=== PATIENT | male | born 1975 | race Caucasian/White ===

== ENCOUNTER 2023-01-06 06:13 | Emergency (ER) | payer BC, SELFPAY ==
[2023-01-06] VITALS (17 sets, daily range): BP systolic 114–156; BP diastolic 69–92; PULSE 57–72; RESP 13–25; TEMP 36.6; O2SAT 95–100; BMI 25.0
--- NOTE | 2023-01-06 06:25 | ECG_ITS ---
[facility] Test Date: 2023-01-06 Pat Name: Fahad Schneider Department: Room: Gender: Male Personal Financial Advisor: : 1975 Requested By: Taiwo Mortensen Order Number: [id number] Karen MD: Sen Rodriguez M.D. Measurements Intervals Mobile Rate: 65 P: -4 NE: 135 QRS: 30 QRSD: 97 T: 64 QT: 408 QTc: 426 Interpretive Statements SINUS RHYTHM WITH SINUS ARRHYTHMIA No previous ECG available for comparison Electronically Signed On 01-06-2023 15:55:26 CDT by Sen Rodriguez M.D. [id number]
--- NOTE | 2023-01-06 06:25 | XR_ITS ---
WS: [id number] EXAMINATION: XR chest 1V portable [id number] REASON FOR EXAM: chest pain COMPARISON: 02/14/2018 ORDER DATE: 01/06/2023 6:42 AM TECHNIQUE: A single, portable frontal chest x-ray was obtained. X-RAY FINDINGS: The lungs are clear. Mild lingular scarring. Pleural spaces are clear. No pleural effusions or pneumo thorax. Cardiomediastinal silhouette is normal. No evidence for pulmonary edema. Soft tissue and osseous structures are unremarkable. No tubes or lines are present. IMPRESSION: Unremarkable frontal portable chest x-ray.
--- NOTE | 2023-01-06 06:26 | W.ED.CHESTPA ---
HPI - Chest Pain General: Chief Complaint: Chest Pain Stated Complaint: chest pain, back pain Time Seen by Provider: 01/06/23 06:25 Source: patient Mode of arrival: ambulatory History of Present Illness: 47-year-old male presents emergency room with complaint of chest pain that woke him up from sleep morning about an hour and a half prior to arrival. He has no known cardiac history does have a history of hypertension several years ago he states he had a stress test that was negative. He has not been having any other episodes of this recently. He gets sharp spasm-like chest pain that last for a few seconds comes and goes radiates into his back. He feels short of breath because painful to take a deep breath and at times with the episodes he will get diaphoretic feeling. No nausea or vomiting. No known history of coronary artery disease. Patient is not diabetic does not smoke he is on antihypertensives and and a statin. He is also on a PPI. MD complaint: chest pain Onset (ago): hour(s) (1.5) Timing of current episode: episodic Onset: during rest Pain location: substernal and left chest Pain radiation: back Severity: moderate Quality: sharp and shooting Relieving factors: nothing Exacerbating factors: nothing Associated symptoms: Reports diaphoresis and dyspnea; Deny abdominal pain, fever(s), nausea, palpitations or vomiting Treatment prior to arrival: none Review of Systems Const: Reports: diaphoresis; Denies: fever(s), chills, fatigue or malaise ENMT: Denies: throat pain, ear or mastoid pain, nasal discharge or nasal congestion Card: Reports: chest pain; Denies: palpitations, irregular heart rhythm, edema, dyspnea on exertion or orthopnea Resp: Reports: dyspnea GI: Denies: abdominal pain, nausea, vomiting, hematemesis, coffee ground emesis, diarrhea, constipation, bloating, hematochezia or melena : Denies: flank pain, dysuria, urinary frequency or urinary urgency Skin/Breast: Denies: rash or pruritus [facility] PFSH: Medical History (Updated 01/06/23 @ 09:05 by Taiwo Chinchilla DO) Anxiety Essential hypertension Hyperlipidemia Obesity SOB (shortness of breath) on exertion Surgical History S/P cholecystectomy Family History Family/Other CAD (coronary artery disease) Other Diabetes Myocardial infarct, old Stroke Social History Smoking and tobacco status: former smoker Alcohol intake: current Alcohol intake frequency: holidays/special occasions only Substance/Drug Use: never Household members: spouse Marital status: Current occupational status: employed Current occupation: SELF- TRANSPORTATION Current gender identity: Male Physical Exam Const: GENERAL APPEARANCE: cooperative and comfortable ORIENTATION/CONSCIOUSNESS: Yes awake, Yes oriented to person, Yes oriented to place and Yes oriented to time HENMT: COMMON NORMALS: normocephalic, atraumatic and hearing grossly normal bilaterally HEAD & SCALP: normocephalic and atraumatic Resp: COMMON NORMALS: normal respiratory effort, No retractions, No use of accessory muscles and clear to auscultation bilaterally AUSCULTATION: clear to auscultation bilaterally Cardio: COMMON NORMALS: regular rate, regular rhythm and No murmurs present (Cardio) RATE: regular rate RHYTHM: regular rhythm GI: COMMON NORMALS: Soft to palpation and No hepatosplenomegaly present AUSCULTATION: Yes normoactive bowel sounds PALPATION: Yes Soft to palpation, No Tenderness to palpation present (GI), No Guarding due to palpation present (GI) and Yes No hepatosplenomegaly present Extremity: COMMON NORMALS: normal to inspection, capillary refill normal, no clubbing, cyanosis or edema, no calf tenderness and no pedal edema Neuro: SENSORIUM/ORIENTATION: Yes oriented to person, Yes oriented to place and Yes oriented to time Skin: COMMON NORMALS: no rashes or lesions noted GENERAL SKIN EXAM: no rashes or lesions noted Course Vital Signs: Vital signs: Vital Signs Temperature 97.9 F 01/06/23 06:19 Pulse Rate 72 01/06/23 09:23 Respiratory Rate 15 01/06/23 09:23 Blood Pressure 114/69 01/06/23 09:23 Pulse Oximetry 99 01/06/23 09:23 Oxygen Delivery Me thod Room Air 01/06/23 06:19 MDM - Chest Pain Medical Decision Making EKG shows no acute changes. No ST segment elevation. Cardiac enzymes negative Labs otherwise unremarkable. Suspect this is more of his GI symptoms not having a discomfort and I will add Carafate add baby aspirin today for an outpatient graded exercise stress test return if has further problems. Medical Records I reviewed the patient's medical records. Lab Data I reviewed the patient's lab results. 01/06/23 06:28 01/06/23 06:28 Laboratory Results WBC 6.54 10^3/uL (3.29-11.43) 01/06/23 06: RBC 5.33 10^6/uL (3.85-5.65) 01/06/23 06:28 Hgb 15.10 g/dL (11.27-16.99) 01/06/23 06:28 Hct 45.1 % (37-53) 01/06/23 06: MCV 84.6 fl (82-101) 01/06/23 06: MCH 28.3 pg (27-33) 01/06/23 06: MCHC 33.5 g/dL (30-55) 01/06/23 06: RDW 14.5 % (12.1-15.1) 01/06/23 06:28 Plt Count 306 10^3/cmm (157-399) 01/06/23 06:28 MPV 9.9 fL (7.4-10.4) 01/06/23 06:28 Neut % (Auto) 52.5 % 01/06/23 06: Lymph % (Auto) 32.4 % 01/06/23 06:28 [place] % (Auto) 11.3 % 01/06/23 06:28 Eos % (Auto) 2.9 % 01/06/23 06: Baso % (Auto) 0.6 % 01/06/23 06:28 Neut # (Auto) 3.43 10^3/uL (1.8-7.7) 01/06/23 06:28 Lymph # (Auto) 2.1 10^3/uL (0.8-4.8) 01/06/23 06:28 [place] # (Auto) 0.7 10^3/uL (0.2-0.9) 01/06/23 06:28 Eos # (Auto) 0.2 10^3/uL (0.0-0.8) 01/06/23 06:28 Baso # (Auto) 0.0 10^3/uL (0.0-0.1) 01/06/23 06:28 Nucleated RBC % (auto) 0 % 01/06/23 06:28 Nucleated RBCs # 0.0 /100WBC 01/06/23 06:28 Sodium 141 mmol/L (136-145) 01/06/23 06:28 Potassium 3.9 mmol/L (3.5-5.1) 01/06/23 06:28 Chloride 106 mmol/L (98-107) 01/06/23 06:28 Carbon Dioxide 24 mmol/L (22-29) 01/06/23 06:28 Anion Gap 14.9 (5-19) 01/06/23 06:28 BUN 17 mg/dL (6-20) 01/06/23 06:28 Creatinine 0.8 mg/dL (0.7-1.2) 01/06/23 06:28 GFR Calculation 103.6 mL/min (90-130) 01/06/23 06:28 Glucose 89 mg/dL (65-115) 01/06/23 06:28 Calculated Osmolality 293 mOsm/kg (285-295) 01/06/23 06:28 Calcium 9.4 mg/dL (8.5-10.5) 01/06/23 06:28 Total Bilirubin 0.8 mg/dL (0.15-1.2) 01/06/23 06:28 AST 21 U/L (0-40) 01/06/23 06:28 ALT 24 U/L (0-41) 01/06/23 06:28 Alkaline Phosphatase 70 U/L (40-130) 01/06/23 06:28 Troponin T Baseline 7 ng/L (0-15) 01/06/23 06:28 Troponin T 120 Minute 6.31 ng/L (0-15) 01/06/23 08:20 Delta Troponin T -0.69 ABS# (0-10) L 01/06/23 08:20 Total Protein 6.9 g/dL (6.6-8.7) 01/06/23 06:28 Albumin 4.4 g/dL (3.5-5.2) 01/06/23 06:28 Globulin 2.5 g/dL (1.3-4.6) 01/06/23 06:28 All radiology interpretation(s) finalized by discharge Discharge Plan Discharge Patient Disposition: Home Clinical Impression: Atypical chest pain Condition: Stable Prescriptions: New aspirin 81 mg tablet,delayed release (DR/EC) 81 mg PO DAILY Qty: 30 0RF Carafate 1 gram tablet 1 g PO Q6H 56 Days Qty: 224 0RF No Action omeprazole 40 mg capsule,delayed release(DR/EC) 40 mg PO BID alprazolam 1 mg tablet extended release 24 hr 1 mg PO BID PRN (Reason: Anxiety) atorvastatin 40 mg tablet 40 mg PO QAM Micardis 80 mg tablet 80 mg PO QAM Discharge Orders: Discharge ED (Routine); Ordered 01/06/23 Ordered By: Taiwo Chinchilla Referrals: Pau Robles, [Primary Care Provider] - Discharge Diet: As Directed Discharge Activity: Increase activity as tolerated Patient Instructions: Diet for Stomach Ulcers and Gastritis (ED), Opioid Safety, Pain Management Activity Restrictions/Additional Instructions: Case management make arrangements for follow-up with an outpatient cardiac stress test. Recommend he start baby aspirin daily as well as Carafate 1 tablet 4 times daily for the next 4 weeks follow-up with your primary care doctor. Coding Level of Care Code ED Educational Technology Specialist for April Silva
[2023-01-06] MEDS: aspirin 81 mg Chew Tablet 324 MG PO (06:33)
[2023-01-06 06:39] LABS: Basophils % 0.6 %; Eosinophils # 0.2 10^3/uL (0.0-0.8); Eosinophils % 2.9 %; Hematocrit 45.1 % (37-53); Lymphocytes # 2.1 10^3/uL (0.8-4.8); Lymphocytes % 32.4 %; Mean Corpuscular HGB Conc 33.5 g/dL (30-55); Mean Corpuscular Hemoglobin 28.3 pg (27-33); Mean Corpuscular Volume 84.6 fl (82-101); Mean Platelet Volume 9.9 fL (7.4-10.4); Monocytes # 0.7 10^3/uL (0.2-0.9); Monocytes % 11.3 %; Neutrophils # 3.43 10^3/uL (1.8-7.7); Neutrophils % 52.5 %; Nucleated Red Blood Cells % 0 %; Platelet Count 306 10^3/cmm (157-399); Red Blood Count 5.33 10^6/uL (3.85-5.65); Red Cell Distribution Width 14.5 % (12.1-15.1); White Blood Count 6.54 10^3/uL (3.29-11.43)
[2023-01-06 06:57] LABS: Alanine Aminotransferase 24 U/L (0-41); Albumin Level 4.4 g/dL (3.5-5.2); Alkaline Phosphatase 70 U/L (40-130); Anion Gap 14.9 (5-19); Aspartate Amino Transferase 21 U/L (0-40); Blood Urea Nitrogen 17 mg/dL (6-20); Calcium 9.4 mg/dL (8.5-10.5); Carbon Dioxide 24 mmol/L (22-29); Chloride 106 mmol/L (98-107); Globulin 2.5 g/dL (1.3-4.6); Glomerular Filtration Rate 103.6 mL/min (90-130); Glucose 89 mg/dL (65-115); Osmolality Calculated 293 mOsm/kg (285-295); Potassium 3.9 mmol/L (3.5-5.1); Sodium 141 mmol/L (136-145); Total Bilirubin 0.8 mg/dL (0.15-1.2); Total Protein 6.9 g/dL (6.6-8.7); Troponin(5th) Baseline 7 ng/L (0-15)
[2023-01-06 09:06] LABS: Troponin 5 2HR 6.31 ng/L (0-15); Troponin 5 2HR Delta -0.69 ABS# (0-10)
== END 2023-01-06 09:25 | disposition home or self-care (01) ==
PROVIDERS: Emergency Provider Family Medicine; PCP Family Medicine
DX: R07.89 Other chest pain (principal); I10 Essential (primary) hypertension; E78.5 Hyperlipidemia, unspecified; Z87.891 Personal history of nicotine dependence
CPT/HCPCS: 36415; 71045; 80053; 84484; 85025; 93005; 99285